=== PATIENT | male | born 1990 | race Caucasian/White ===

== ENCOUNTER 2016-09-05 23:20 | Emergency (ER) | payer SELFPAY ==
[~2016-09-05] VITALS: Ht 172.7 cm; Wt 97.1 kg
[~2016-09-05 23:20] MED LIST: CYCL-319 PO; HYDR-3498 PO; IBUP-1542 PO; MAG-19 PO; OMEP20CA9 PO; ONDA4TAB35 PO
[2016-09-05 23:21] VITALS: Ht 172.7 cm; Wt 97.1 kg
== END 2016-09-06 00:38 | disposition left against medical advice (07) ==
LOC: FTE 23:20
DX: Z53.21 Procedure and treatment not carried out due to patient leaving prior to being seen by health care provider (principal)